=== PATIENT | female | born 1975 | race American Indian/Alaskan Native ===

== ENCOUNTER 2020-11-26 20:53 | Emergency (ER) | payer OTHER ==
[2020-11-26] MEDS ORDERED: HYDROmorphone 1 MG/1 ML INJ IV ONE (22:30)
[2020-11-26] MEDS ORDERED: SODIUM CHLORIDE 0.9% 1000 ML 1,000 ML IV ONE (22:30)
[2020-11-26] MEDS ORDERED: dexAMETHasone 4 MG/ML VIAL IV ONE (22:30)
[2020-11-26] MEDS ORDERED: diphenhydrAMINE 50 MG/ML VIAL IV ONE (22:30)
[2020-11-26] MEDS ORDERED: ONDANSETRON 4 MG/2 ML INJ IV ONE (22:30)
--- NOTE | 2020-11-26 22:37 | Emergency Department Report ---
ED Headache HPI - General Chief Complaint: Headache Stated Complaint: POSS BRAIN ANEURYSM Time Seen by Provider: 11/26/20 22:30 Source: patient Exam Limitations: no limitations - History of Present Illness Initial Comments: Patient is a 45-year-old female who presents emergency room with complaints of severe headache, blurry vision and nausea vomiting. Patient states her prolo nged for 4 to 6 hours. Patient states that she has never been diagnosed with migraines. Patient states that she has light sensitivity. Patient states she has sensitivity. Patient denies stiff neck. Patient denies fever or chills. Patient denies blood in her vomitus. Patient denies abdominal pain. Patient states that her pain is also better with rest. Patient states is the most severe headache she is ever had. Patient states she is under a lot of stress. Patient denies recent travel. Patient denies recent international travel. Patient denies exposure to the novel coronavirus. Patient denies sick contacts. Patient denies fever and chills. Patient denies cough. Patient denies diarrhea. Patient denies coming in contact with anybody with symptoms of the novel coronavirus. Patient states that she has had a 1 month history of dizziness and falling. Patient states her primary care scheduled a MRI for Saturday. Patient states that she has had multiple work-up on her dizziness but has not had a image of her brain. Patient has not seen a neurologist. Timing/Duration: 4-6 hours Quality: severe Head Injury Location: global Recent Head Trauma: occasional headaches Modifying Factors: improves with: cold therapy, exposure to light, movement, rest Associated Symptoms: nausea/vomiting, vision changes. denies: confusion, fa tigue, facial pain, fever/chills, flushing, loss of consciousness, nasal congestion, nasal drainage, numbness in legs/feet, rash, seizures, sinus infection, stiff neck, weakness Allergies/Adverse Reactions: Allergies No Known Allergies Allergy (Unverified 11/26/20 21:14) Home Medications: Ambulatory Orders Butalb/Acetamin/Caff 50-325-40 [Fioricet 50-325-40] 1 each PO Q4H PRN #10 tablet 11/27/20 Ondansetron [Zofran Odt] 4 mg PO Q6HR PRN #15 tab.rapdis 11/27/20 methylPREDNISolone [Medrol 4MG DOSEPAK (21 tabs)] 4 mg PO DAILY 6 Days #1 ta b.ds.pk 11/27/20 ED Review of Systems ROS: Stated complaint: POSS BRAIN ANEURYSM Other details as noted in HPI Constitutional: denies: chills, fever Eyes: denies: eye pain, eye discharge, vision change ENT: denies: ear pain, throat pain Respiratory: denies: cough, shortness of breath, wheezing Cardiovascular: denies: chest pain, palpitations Endocrine: no symptoms reported Gastrointestinal: nausea, vomiting. denies: abdominal pain, diarrhea Genitourinary: denies: urgency, dysuria, discharge Musculoskeletal: denies: back pain, joint swelling, arthralgia Skin: denies: rash, lesions Neurological: as per HPI, headache. denies: weakness, paresthesias Psychiatric: denies: anxiety, depression Hematological/Lymphatic: denies: easy bleeding, easy bruising ED Past Medical Hx - Past Medical History Previous Medical History?: No - Surgical History Past Surgical History?: No - Family History Family history: no significant - Social History Smoking Status: Never Smoker Substance Use Type: None - Medications Home Medications: Home Medications Medication Instructions Recorded Confirmed Last Taken Type Butalb/Acetamin/Caff 50-325-40 1 each PO Q4H PRN #10 tablet 11/27/20 Unknown Rx [Fioricet 50-325-40] Ondansetron [Zofran Odt] 4 mg PO Q6HR PRN #15 tab.rapdis 11/27/20 Unknown Rx methylPREDNISolone [Medrol 4MG 4 mg PO DAILY 6 Days #1 tab.ds.pk 11/27/20 Unk nown Rx DOSEPAK (21 tabs)] ED Physical Exam - General Limitations: No Limitations General appearance: alert, in no apparent distress - Head Head exam: Present: atraumatic, normocephalic - Eye Eye exam: Present: normal appearance, PERRL Pupils: Present: normal accommodation - Expanded Eye Exam Expanded Pupils: Regular, Round: Bilateral, Reactive: Bilateral Anterior chamber: Normal Inspection: Bilateral Posterior chamber: Normal Inspection: Bilateral - ENT ENT exam: Present: mucous membranes moist - Neck Neck exam: Present: normal inspection, full ROM. Absent: tenderness, meningismus, lymphadenopathy, thyromegaly - Respiratory Respiratory exam: Present: normal lung sounds bilaterally. Absent: respiratory distress - Cardiovascular Cardiovascular Exam: Present: regular rate, normal rhythm. Absent: systolic murmur, diastolic murmur, rubs, gallop - GI/Abdominal GI/Abdominal exam: Present: soft, normal bowel sounds - Extremities Exam Extremities exam: Present: normal inspection - Back Exam Back exam: Present: normal inspection - Neurological Exam Neurological exam: Present: alert, oriented X3, CN II-XII intact, normal gait. Absent: motor sensory deficit - Psychiatric Psychiatric exam: Present: normal affect, normal mood - Skin Skin exam: Present: warm, dry, intact, normal color. Absent: rash ED Course Vital Signs 11/26/20 11/26/20 11/26/20 20:58 22:00 23:00 Temperature 98.3 F Pulse Rate 78 61 71 Respiratory 18 14 22 Rate Blood Pressure 160/92 158/85 143/90 O2 Sat by Pulse 98 99 96 Oximetry 11/26/20 11/27/20 11/27/20 23:34 00:00 00:10 Temperature Pulse Rate 58 L 57 L 54 L Respiratory 16 16 10 L Rate Blood Pressure 140/82 140/82 O2 Sat by Pulse 96 97 96 Oximetry 11/27/20 01:00 Temperature Pulse Rate 60 Respiratory 15 Rate Blood Pressure 153/93 O2 Sat by Pulse 98 Oximetry - Reevaluation(s) Reevaluation #1: Patient states her pain is improving. Patient states she is not having any nausea. Patient states that headache is decreasing. Patient states that dizziness has resolved. Patient states the blurry vision has resolved. 11/26/20 23:41 Reevaluation #2: Patient states she is pain-free and symptom-free. Patient is feeling much better. I discussed all results and clinical findings with patient. I discussed plan of care with patient. Patient agrees with plan of care. Patient is stable for discharge. Patient will be discharged home. Patient given discharge instruc tions. Patient voiced understanding of discharge instructions. 11/27/20 00:41 ED Medical Decision Making - Lab Data Result diagrams: 11/26/20 22:39 11/26/20 22:39 - Radiology Data Radiology results: report reviewed Examination: CT of the head without contrast Clinical information: Headache Comparison: None Technical: Multiple axial CT images of the head were obtained without intravenous contrast. Sagittal and coronal reformats were obtained. All CTs at this facility utilize dose reduction techniques including automated exposure control, iterative reconstruction and weight based dosing when appropriate to reduce patient radiation dose to as low as reasonable achievable. Findings: INTRACRANIAL CONTENTS: There is no CT evidence of acute intracranial hemorrhage or large territorial infarct. The ventricular system is normal in size. There is no e vidence of mass effect or midline shift. SKULL: No acute bony abnormality is visualized. ORBITS: The bilateral orbits and globes appear normal PARANASAL SINUSES / MASTOID AIR CELLS: Paranasal sinuses and mastoid air cells appear clear. Impression: 1. No CT evidence of acute intracranial process. - Medical Decision Making Patient is a 45-year-old female who presents emergency room with complaints of migraine symptoms. Patient complained of nausea, light sensitivity, sound sensitivity, severe headache. Patient also had remote history of dizziness and multiple falls. Patient already has an MRI scheduled by her primary care. Due to that the patient has this headache ever, the patient had a CT scan of the head which was negative for acute findings. Patient had labs done which were essentially unremarkable patient was given a headache protocol to include Zofran, Benadryl, Dilaudid and steroids. Patient responded well to treatment patient states all of her symptoms resolved. Patient is stable for discharge. Patient not require further emergency extremity swelling patient states the patient has been managed as an outpatient. - Differential Diagnosis Severe headache, complex migraine, nausea, dizziness Critical care attestation.: If time is entered above; I have spent that time in minutes in the direct care of this critically ill patient, excluding procedure time. ED Disposition Clinical Impression: Dizziness, Severe headache, Blurry vision, bilateral Migraine Qualifiers: Migraine type: with aura Status migrainosus presence: with status migrainosus Intractability: not intractable Qualified Code(s): G43.101 - Migraine with aura, not intractable, with status migrainosus Nausea & vomiting Qualifiers: Vomiting type: unspecified Vomiting Intractability: non-intractable Qualified Code(s): R11.2 - Nausea with vomiting, unspecified Disposition: DC- TO HOME OR SELFCARE Is pt being admited?: No Does the pt Need Aspirin: No Condition: Stable Instructions: Recurrent Migraine Headache, Nausea and Vomiting, Adult, [id number], Dizziness, Migraine Headache Additional Instructions: Patient to follow-up with primary care in 2 to 3 days. Patient to follow-up with neurologist in 2 to 3 days. Patient to rest. Patient to increase water. Patient to avoid strenuous exercise or heavy lifting until cleared by neurologist and primary care. Patient to take Tylenol or ibuprofen as needed for pain. Patient to take meds as directed. Patient to return to the ER if condition worsens, changes or new symptoms arise. Prescriptions: Butalb/Acetamin/Caff 50-325-40 [Fioricet 50-325-40] 1 each PO Q4H PRN #10 tablet PRN Reason: Headache methylPREDNISolone [Medrol 4MG DOSEPAK (21 tabs)] 4 mg PO DAILY 6 Days #1 tab.ds.pk Ondansetron [Zofran Odt] 4 mg PO Q6HR PRN #15 tab.rapdis PRN Reason: Nausea And Vomiting Referrals: PRIMARY CARE,MD [Primary Care Provider] - 2-3 Days JAZMINE CONNORS MD [Staff Physician] - 2-3 Days Time of Disposition: 00:47
[2020-11-26 23:21] LABS: Hematocrit 34.2 % (30.3-42.9); Hemoglobin 10.8 gm/dl (10.1-14.3); Mean Corpuscular HGB Conc 32 % (30-34); Mean Corpuscular Volume 76 fl (79-97); Platelet Count 357 K/mm3 (140-440); Red Blood Count 4.52 M/mm3 (3.65-5.03)
[2020-11-26 23:27] LABS: Red Cell Distribution Width 28.9 % (13.2-15.2)
[2020-11-26 23:50] LABS: Alanine Aminotransferase 16 units/L (7-56); Albumin 4.2 g/dL (3.9-5); BUN/Creatinine Ratio 14; Blood Urea Nitrogen 11 mg/dL (7-17); Calcium 8.8 mg/dL (8.4-10.2); Hemolysis Index 2
--- NOTE | 2020-11-27 00:04 | Cat Scan Report ---
Examination: CT of the head without contrast Clinical information: Headache Comparison: None Technical: Multiple axial CT images of the head were obtained without intravenous contrast. Sagittal and coronal reformats were obtained. All CTs at this facility utilize dose reduction techniques inc luding automated exposure control, iterative reconstruction and weight based dosing when appropriate to reduce patient radiation dose to as low as reasonable achievable. Findings: INTRACRANIAL CONTENTS: There is no CT evidence of acute intracranial hemorrhage or large territorial infarct. The ventricular system is normal in size. There is no evidence of mass effect or midline kwame ft. SKULL: No acute bony abnormality is visualized. ORBITS: The bilateral orbits and globes appear normal PARANASAL SINUSES / MASTOID AIR CELLS: Paranasal sinuses and mastoid air cells appear clear. Impression: 1. No CT evidence of acute intracranial process. Signer Name: Leia Pak MD Signed: 11/27/2020 12:00 AM Workstation Name: [id number]
[2020-11-27 00:16] LABS: Anisocytosis 1+; Total Cells Counted 100
[2020-11-27 00:17] LABS: Hypochromasia 1+; Platelet Estimate Consistent w Auto
[2020-11-27 01:13] VITALS: BP 153/93
== END 2020-11-27 01:13 | disposition home or self-care (01) ==
LOC: ED 20:53
DX: G43.909 Migraine, unspecified, not intractable, without status migrainosus (principal); R11.2 Nausea with vomiting, unspecified; H53.8 Other visual disturbances; R42 Dizziness and giddiness; Z79.899 Other long term (current) drug therapy
CPT/HCPCS: 36415; 70450; 80053; 84703; 85007; 85025; 96361; 96374; 96375; 99284; J1100; J1170; J1200; J2405; J7030